=== PATIENT | female | born 1970 | race Caucasian/White ===

== ENCOUNTER 2018-12-11 06:35 | Emergency (ER) | payer OTHER ==
[~2018-12-11] VITALS: Ht 170.2 cm; Wt 81.6 kg
[2018-12-11] MEDS ORDERED: DIGOX125 MCG (06:53)
[2018-12-11] MEDS ORDERED: TESSALON PERLE100 M1 PO (12:37)
[2018-12-11] MEDS ORDERED: PROMETHAZINE W473 ML PO (12:37)
== END 2018-12-11 13:22 | disposition home or self-care (01) ==
LOC: ER 06:35
DX: R05 Cough (principal)

== ENCOUNTER 2020-02-23 15:30 | Emergency (ER) | payer OTHER ==
[~2020-02-23] VITALS: Ht 170.2 cm; Wt 86.2 kg
[~2020-02-23 15:30] MED LIST: DIGOX125 MCG; PROMETHAZINE W473 ML PO; TESSALON PERLE100 M1 PO
[2020-02-23] MEDS ORDERED: LANOXIN (15:57)
== END 2020-02-23 17:16 | disposition home or self-care (01) ==
LOC: ER 15:30
DX: M54.5 Low back pain (principal)

== ENCOUNTER 2023-07-24 07:44 | Outpatient (CLI) | payer OTHER ==
[~2023-07-24 07:44] MED LIST changes: +LANOXIN
== END 2023-07-24 07:53 | disposition home or self-care (01) ==
LOC: RAD 07:44
PROVIDERS: ATTEND Specialist
DX: Z01.811 Encounter for preprocedural respiratory examination (principal); R06.02 Shortness of breath